=== PATIENT | female | born 1940 | race Caucasian/White ===

== ENCOUNTER 2016-12-12 06:12 | Day surgery (SDC) | payer MEDICARE, OTHER ==
[2016-12-09 11:52] LABS: ASPARTATE AMINO TRANSFERASE 23 U/L (15-37); BLOOD UREA NITROGEN 34 mg/dL (7-18)
[~2016-12-12] VITALS: Ht 154.9 cm; Wt 67.0 kg
[~2016-12-12 06:12] MED LIST: FENT1PAT9 TD; FLUT15.88 NAS; L.AC1CAP6 PO; LIDO700A30 TP; LOSA1TAB17 PO; METH500T7 PO; OXYC1TAB7 PO; PREG150C PO; RIVA20TA PO
[2016-12-12] MEDS ORDERED: VANCOMYCIN PMX 1GM/200ML 200 ML IV STA (06:24)
[2016-12-12] MEDS ORDERED: FENTANYL PF 100 MCG/2ML ONE (06:31)
[2016-12-12] MEDS ORDERED: LACTATED RINGERS 1,000 ML IV SCH (06:45)
[2016-12-12 07:09] VITALS: BP 112/74
[2016-12-12] MEDS ORDERED: BUPIVACAINE/PF 0.5% ONE (07:50)
[2016-12-12] MEDS ORDERED: BUPIVACAINE/PF-EPI 0.25% 1:200K ONE (07:51)
[2016-12-12] MEDS ORDERED: LABETALOL 5MG/ML, 20ML IV PRN (08:00)
[2016-12-12] MEDS ORDERED: METOCLOPRAMIDE 5 MG/ML, 2ML IV PRN (08:00)
[2016-12-12] MEDS ORDERED: PROMETHAZINE 25 MG/ML, 1ML IV PRN (08:00)
[2016-12-12] MEDS ORDERED: FENTANYL PF 100 MCG/2ML IV PRN (08:00)
[2016-12-12] MEDS ORDERED: ONDANSETRON 2MG/ML, 2ML IVPush PRN (08:00)
[2016-12-12] MEDS ORDERED: HYDROmorphone 1 MG/ML, 1ML IV PRN (08:00)
[2016-12-12] MEDS ORDERED: MEPERIDINE/PF 25MG/0.5ML IVPush PRN (08:00)
[2016-12-12] MEDS ORDERED: OXYcodone 5 MG/5 ML ORAL.SOL UDC PO PRN (08:00)
[2016-12-12] MEDS ORDERED: hydrALAzine 20 MG/ML, 1ML IV PRN (08:00)
[2016-12-12] MEDS ORDERED: ACETAMINOPHEN 325 MG TABLET PO PRN (08:00)
[2016-12-12] MEDS ORDERED: GLYCOPYRROLATE 0.2MG/1ML ONE (08:06)
[2016-12-12] MEDS ORDERED: PHENYLEPHRINE 10 MG/ML ONE (08:06)
[2016-12-12] MEDS ORDERED: DEXAMETHASONE 4 MG/ML, 1ML ONE (08:06)
[2016-12-12] MEDS ORDERED: ONDANSETRON 2MG/ML, 2ML ONE (08:06)
[2016-12-12] MEDS ORDERED: PROPOFOL 10 MG/ML, 20ML ONE (08:06)
[2016-12-12] MEDS ORDERED: ROCURONIUM 10 MG/ML ONE (08:06)
[2016-12-12] MEDS ORDERED: NEOSTIGMINE 1 MG/ML, 10ML ONE (08:06)
[2016-12-12] MEDS ORDERED: OMNIPAQUE 180 MG/ML, 20ML VIAL IT ONE (08:46)
[2016-12-12] MEDS ORDERED: ALBUTEROL SULFATE 2.5 MG/3 ML ONE (15:48)
[2016-12-12] MEDS ORDERED: ALBUTEROL SULFATE 2.5 MG/3 ML NPPB ONE (16:00)
== END 2016-12-12 16:50 | disposition home or self-care (01) ==
LOC: OUT 06:12
PROVIDERS: ATTEND Orthopaedic Surgery Orthopaedic Surgery of the Spine
DX: M80.88XA Other osteoporosis with current pathological fracture, vertebra(e), initial encounter for fracture (principal); M54.6 Pain in thoracic spine; I10 Essential (primary) hypertension; Z86.718 Personal history of other venous thrombosis and embolism
CPT/HCPCS: 22513; 36415; 71020; 72072; 80053; 81001; 85025; 85610; 85651; 85730; 88307; 88311; 93005; 94640; J1100; J2370; J2405; J2704; J2710; J3010; J3370; J7120; Q9965; J3490; J7613

== ENCOUNTER 2020-09-07 06:06 | Day surgery (SDC) | payer MEDICARE, OTHER ==
[2020-09-04 13:51] LABS: HCT (SEDRATE) 31.8 % (34.6-47.8)
[2020-09-04 13:52] LABS: BASOPHILS % (AUTO) 1 % (0-1); EOSINOPHILS % (AUTO) 2 % (1-7); LYMPHOCYTES % (AUTO) 22 % (22-44); MEAN CORPUSCULAR HEMOGLOBIN 27.1 pg (27.0-34.8); MEAN CORPUSCULAR HGB CONC 32.2 g/dL (32.4-35.8); MEAN PLATELET VOLUME 7.6 fL (7.4-10.4); MONOCYTES % (AUTO) 14 % (2-9); NEUTROPHILS % (AUTO) 61 % (42-75); PLATELET COUNT 415 x10^3/uL (130-400); RED BLOOD COUNT 3.75 x10^6/uL (3.82-5.3); RED CELL DISTRIBUTION WIDTH 15.3 % (9.6-15.2)
[2020-09-04 14:02] LABS: MD NO
[2020-09-04 14:05] LABS: ALANINE AMINOTRANSFERASE 13 U/L (12-78); ALBUMIN 3.5 g/dL (3.4-5.0); ANION GAP 4 mmol/L (5-15); CALCIUM 10.2 mg/dL (8.5-10.1); CHLORIDE 102 mmol/L (98-107)
[2020-09-04 14:06] LABS: ALKALINE PHOSPHATASE 77 U/L (45-117); BILIRUBIN,TOTAL 0.5 mg/dL (0.2-1.0); TOTAL PROTEIN 7.6 g/dL (6.4-8.2)
[2020-09-04 14:37] LABS: INTERNATIONAL NORMALIZED RATIO 1.44 (0.93-1.1); PROTHROMBIN TIME 15.2 Seconds (9.6-11.5)
[~2020-09-07] VITALS: Ht 154.9 cm; Wt 69.3 kg
[~2020-09-07 06:06] MED LIST changes: +CEFD300C37 PO; +CYCL-259 PO; +DICY10CA3 PO; +DOXY100T PO; +FLUT15.845 NAS; -FLUT15.88 NAS; +LOSA100T14 PO; -LOSA1TAB17 PO; +LOSA1TAB22 PO; +LOSA50TA2 PO; +PANT40TA6 PO
[2020-09-07 06:57] VITALS: BP 151/72
[2020-09-07] MEDS ORDERED: CHLORHEXIDINE 15 ML UDC MM ONE (07:00)
[2020-09-07] MEDS ORDERED: VANCOMYCIN PMX 1GM/200ML 200 ML IV ONE (07:00)
[2020-09-07] MEDS ORDERED: LACTATED RINGERS 1,000 ML IV SCH (07:00)
[2020-09-07] MEDS ORDERED: BUPIVACAINE/EPI 0.5% 1:200K ONE (07:01)
[2020-09-07] MEDS ORDERED: OMNIPAQUE 180 MG/ML, 20ML VIAL IT ONE (07:40)
[2020-09-07] MEDS ORDERED: BUPIVACAINE/EPI 0.5% 1:200K INFIL ONE (07:40)
[2020-09-07] MEDS ORDERED: FENTANYL PF 100 MCG/2ML ONE ×2 (07:54→09:19)
[2020-09-07] MEDS ORDERED: GLYCOPYRROLATE 0.2MG/1ML, 5ML ONE (08:34)
[2020-09-07] MEDS ORDERED: CEFAZOLIN 1,000 MG ONE (08:34)
[2020-09-07] MEDS ORDERED: ONDANSETRON 2MG/ML, 2ML ONE (08:34)
[2020-09-07] MEDS ORDERED: PROPOFOL 10 MG/ML, 20ML ONE (08:34)
[2020-09-07] MEDS ORDERED: NEOSTIGMINE 1 MG/ML, 10ML ONE (08:34)
[2020-09-07] MEDS ORDERED: SUCCINYLCHOLINE 20 MG/ML, 10ML ONE (08:34)
[2020-09-07] MEDS ORDERED: ROCURONIUM 10MG/ML,5ML ONE (08:34)
[2020-09-07] MEDS ORDERED: HYDROmorphone 1 MG/ML, 1ML INJ IVPush PRN (09:00)
[2020-09-07] MEDS ORDERED: PROMETHAZINE 25 MG/ML, 1ML IVPush PRN (09:00)
[2020-09-07] MEDS ORDERED: ONDANSETRON 2MG/ML, 2ML IVPush PRN (09:00)
[2020-09-07] MEDS ORDERED: OXYcodone 5 MG/5 ML ORAL.SOL UDC PO PRN (09:00)
[2020-09-07] MEDS ORDERED: hydrALAzine 20 MG/ML, 1ML IV PRN (09:00)
[2020-09-07] MEDS ORDERED: METHOCARBAMOL 1,000 MG in DEXTROSE 5% 100 ML IV PRN (09:00)
[2020-09-07] MEDS ORDERED: LABETALOL 5MG/ML, 20ML IV PRN (09:00)
[2020-09-07] MEDS ORDERED: ACETAMINOPHEN 325 MG TABLET PO PRN (09:00)
[2020-09-07] MEDS ORDERED: PROMETHAZINE 25 MG SUPP PR PRN (09:00)
[2020-09-07] MEDS ORDERED: DIPHENHYDRAMINE 50 MG/ML, 1ML ONE (09:13)
[2020-09-07] MEDS ORDERED: OXYcodone 5 MG/5 ML ORAL.SOL UDC ONE (09:19)
[2020-09-07] MEDS ORDERED: ACETAMINOPHEN 650 MG/20.3 ML UDC ONE (09:19)
[2020-09-07] MEDS: FENTANYL PF 100 MCG/2ML IV PRN ×2 (09:30→09:41)
[2020-09-07] MEDS ORDERED: DIPHENHYDRAMINE 50 MG/ML, 1ML IVPush PRN (09:30)
== END 2020-09-07 12:10 | disposition home or self-care (01) ==
LOC: OUT 06:06
PROVIDERS: ATTEND Orthopaedic Surgery Orthopaedic Surgery of the Spine
DX: M80.88XA Other osteoporosis with current pathological fracture, vertebra(e), initial encounter for fracture (principal); J43.9 Emphysema, unspecified; I10 Essential (primary) hypertension; K21.9 Gastro-esophageal reflux disease without esophagitis; Z88.0 Allergy status to penicillin; Z88.1 Allergy status to other antibiotic agents; Z88.2 Allergy status to sulfonamides; Z87.891 Personal history of nicotine dependence; Z79.899 Other long term (current) drug therapy; Z86.718 Personal history of other venous thrombosis and embolism; Z79.01 Long term (current) use of anticoagulants; Z90.49 Acquired absence of other specified parts of digestive tract; Z90.710 Acquired absence of both cervix and uterus; Z98.890 Other specified postprocedural states; Z82.49 Family history of ischemic heart disease and other diseases of the circulatory system; Z83.3 Family history of diabetes mellitus
CPT/HCPCS: 22514; 36415; 71046; 72100; 80053; 83036; 85025; 85610; 85651; 85730; 88307; 88311; 93005; C1713; J0330; J0690; J1200; J2405; J2704; J2710; J2800; J3010; J3370; J7120; Q9965; U0003; 76000